=== PATIENT | male | born 1985 | race African-American/Black ===

== ENCOUNTER 2016-09-17 21:30 | Emergency (ER) | payer SELFPAY ==
[~2016-09-17] VITALS: Ht 175.3 cm; Wt 81.0 kg
[~2016-09-17 21:30] MED LIST: ACET-2047 PO; CEPH-443 PO; CLOT15CR62 TOP; HYDR-3498 PO; IBUP-1542 PO; PRED50TA PO; TRIA15OI9 TOP
[2016-09-17 21:35] VITALS: Ht 175.3 cm; Wt 81.0 kg
[2016-09-17] MEDS ORDERED: HYDROCODONE/APAP (5/325) TAB PO ONE (23:00)
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
[2016-09-18] MEDS ORDERED: IBUP400T22 PO (00:33)
[2016-09-18] MEDS ORDERED: HYDR-906 PO (00:33)
[2016-09-18 00:56] VITALS: BP 159/103; PULSE 76; RESP 18; TEMP 98.7
== END 2016-09-18 01:00 | disposition home or self-care (01) ==
LOC: FTE 21:30
DX: S42.402A Unspecified fracture of lower end of left humerus, initial encounter for closed fracture (principal); V03.10XA Pedestrian on foot injured in collision with car, pick-up truck or van in traffic accident, initial encounter

== ENCOUNTER 2016-09-21 10:51 | Emergency (ER) | payer SELFPAY ==
[~2016-09-21] VITALS: Ht 177.8 cm; Wt 83.0 kg
[~2016-09-21 10:51] MED LIST changes: +HYDR-906 PO; +IBUP400T22 PO
[2016-09-21 10:57] VITALS: Ht 177.8 cm; Wt 83.0 kg
[2016-09-21] MEDS ORDERED: HYDR-902 PO (12:05)
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
== END 2016-09-21 12:57 | disposition home or self-care (01) ==
LOC: FTE 10:51
DX: M25.522 Pain in left elbow (principal)

== ENCOUNTER 2017-08-03 11:05 | Emergency (ER) | END 2017-08-03 11:57 | disposition home or self-care (01) ==